=== PATIENT | female | born 1995 | race Two or more races ===

== ENCOUNTER 2024-12-22 23:01 | Emergency (ER) | payer SELFPAY ==
[~2024-12-22] VITALS: Ht 162.6 cm; Wt 81.6 kg
[2024-12-23] MEDS ORDERED: LIDOCAINE 1% INJ 50 ML MDV IJ ONE (00:07)
[2024-12-23] MEDS ORDERED: BUPIVACAINE 0.5 % PF 150 MG/30 ML VIAL ONE (00:07)
[2024-12-23] MEDS ORDERED: TDAP [DIPH/PERTUSSIS/TET] 0.5 ML VIAL IM ONE (00:24)
[2024-12-23] MEDS: TDAP [DIPH/PERTUSSIS/TET] 0.5 ML VIAL IM ONE (00:30)
[2024-12-23 00:47] VITALS: BP 137/70; TEMP 97.7; O2SAT 99
== END 2024-12-23 00:48 | disposition home or self-care (01) ==
LOC: ER 23:08
DX: S61.352A Open bite of right middle finger with damage to nail, initial encounter (principal); W54.0XXA Bitten by dog, initial encounter; Y93.K1 Activity, walking an animal; Y92.89 Other specified places as the place of occurrence of the external cause; Y99.8 Other external cause status
CPT/HCPCS: 99284; 11730; 90471; 90715; J3490 ×2